=== PATIENT | female | born 1970 | race Caucasian/White ===

== ENCOUNTER 2017-10-26 08:41 | Outpatient (CLI) | payer OTHER | END 2017-10-26 08:42 | disposition home or self-care (01) | LOC: BICMAMMO 08:41 | PROVIDERS: ATTEND Family Medicine | DX: Z12.31 Encounter for screening mammogram for malignant neoplasm of breast (principal); Z13.820 Encounter for screening for osteoporosis; N63.20 Unspecified lump in the left breast, unspecified quadrant; M85.89 Other specified disorders of bone density and structure, multiple sites; Z90.710 Acquired absence of both cervix and uterus; Z82.62 Family history of osteoporosis | CPT/HCPCS: 77067; 77080 ==

== ENCOUNTER 2017-10-28 12:29 | Outpatient (CLI) | payer OTHER | END 2017-10-28 12:30 | disposition home or self-care (01) | LOC: BICMAMMO 12:29 | PROVIDERS: ATTEND Family Medicine | DX: N63.20 Unspecified lump in the left breast, unspecified quadrant (principal) | CPT/HCPCS: G0279 ==

== ENCOUNTER 2018-10-19 09:16 | Outpatient (CLI) | payer OTHER ==
--- NOTE | 2018-10-19 10:30 | MRI ---
MRI LEFT KNEE WITHOUT CONTRAST: INDICATION: Left knee pain for 3 weeks. FINDINGS: There is mild chondrosis involving the lateral patellar facet and median patellar ridge. The ACL, PCL, MCL and LCLC are intact. Extensor mechanism is intact. The medial and lateral menisci are intact. 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 The extensor mechanism is normal-appearing. There is mild diffuse thinning involving the femoral tibial compartments. No full-thickness articular cartilage defect is evident. IMPRESSION: 1. 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 No full-t hickness defect is grossly evident. 2. The ACL, PCL, MCL and LCLC are intact. 3. The menisci are intact. The lateral meniscus is partially discoid without evidence of discrete te ar. Transcribed Date/Time: 10/19/2018 10:46 AM
== END 2018-10-19 09:17 | disposition home or self-care (01) ==
LOC: TBSIIMAG 09:16
PROVIDERS: ATTEND Family Medicine
DX: M25.562 Pain in left knee (principal); M25.862 Other specified joint disorders, left knee

== ENCOUNTER 2018-11-16 12:53 | Outpatient (CLI) | payer OTHER ==
--- NOTE | 2018-11-16 14:33 | MMO ---
Bilateral MAMMO Bilat Screen DDI. CLINICAL HISTORY: Patient is 48 years old and is seen for screening. The patient has no family history of breast cancer. The patient has no personal history of cancer. VIEWS: The views performed were: bilateral craniocaudal and bilateral mediolateral oblique. FILMS COMPARED: The present examination has been compared to prior imaging studies performed at [facility] on 09/06/2015, 09/10/2015, 10/24/2016, 10/26/2017 and 10/28/2017. This study has been interpreted with the assistance of computer-aided detection. MAMMOGRAM FINDINGS: The breasts are almost entirely fat. There are no suspicious masses, suspicious calcifications, or new areas of architectural distortion. IMPRESSION: THERE IS NO MAMMOGRAPHIC EVIDENCE OF MALIGNANCY. A ROUTINE FOLLOW-UP MAMMOGRAM IN 1 YEAR IS RECOMMENDED. ACR BI-RADS Category 1 - Negative MAMMOGRAPHY NOTE: 1. A negative mammogram report should not delay a biopsy if a dominant of clinically suspicious mass is present. 2. Approximately 10% to 15% of breast cancers are not detected by mammography. 3. Adenosis and dense breasts may obscure an underlying neoplasm.
== END 2018-11-16 12:54 | disposition home or self-care (01) ==
LOC: BICMAMMO 12:53
PROVIDERS: ATTEND Family Medicine
DX: Z12.31 Encounter for screening mammogram for malignant neoplasm of breast (principal)
CPT/HCPCS: 77067

== ENCOUNTER 2019-08-08 13:08 | Emergency (ER) | payer OTHER ==
[2019-08-08 15:05] LABS: #Basophils 0.1 thou/uL (0.0-0.2); #Eosinphils 0.3 thou/uL (0.0-0.7); #Lymphocytes 3.8 thou/uL (1.20-3.40); #Monocytes 0.7 thou/uL (0.11-0.59); #Neutrophils 4.7 thou/uL (1.40-6.50); %Basophils 1.4 % (0.0-1.0); %Eosinophils 2.6 % (0.0-10.0); %Lymphocytes 39.3 % (21.0-51.0); %Monocytes 7.4 % (0.0-10.0); %Neutrophils 49.3 % (42.0-75.0); Hemoglobin 14.9 g/dL (12.0-16.0); Mean Corpuscular HGB CONC 33.2 g/dL (32.0-36.0); Mean Corpuscular Hemoglobin 30.3 pg (27.0-31.0); Mean Corpuscular Volume 91.2 fL (78.0-98.0); Mean Platelet Volume 8.2 fL (7.4-10.4); Platelet Count 274 thou/uL (130-400); RBC Distribution Width 12.4 % (11.5-14.5); Red Blood Cell (RBC) Count 4.91 mill/uL (4.20-5.40); White Blood Cell (WBC) Count 9.6 thou/uL (4.8-10.8)
[2019-08-08 15:31] LABS: ALT (SGPT) 23 U/L (8-55); AST (SGOT) 26 U/L (5-34); Albumin 5.1 g/dL (3.5-5.0); Alkaline Phosphatase 92 U/L (40-110); Anion Gap 12 mmol/L (10-20); BUN (Urea Nitrogen) 15 mg/dL (9.8-20.1); Bilirubin, Total 0.7 mg/dL (0.2-1.2); Calc. Creatinine Clearance 0 mL/min (70-130); Calcium 10.6 mg/dL (7.8-10.44); Carbon Dioxide 26 mmol/L (22-29); Chloride 105 mmol/L (98-107); Estimated GFR-MDRD 55; Globulin 3.9 g/dL (2.4-3.5); Glucose 77 mg/dL (70-105); Lipase 44 U/L (8-78); Potassium 4.1 mmol/L (3.5-5.1); Sodium 139 mmol/L (136-145)
== END 2019-08-08 17:12 | disposition left against medical advice (07) ==
LOC: ERS 13:08
DX: Z53.21 Procedure and treatment not carried out due to patient leaving prior to being seen by health care provider (principal)
CPT/HCPCS: 36415; 80053; 83690; 85025

== ENCOUNTER 2020-03-05 13:29 | Outpatient (CLI) | payer OTHER ==
--- NOTE | 2020-03-05 14:13 | MMO ---
Left Breast MAMMO Unilat Diag DDI LT+[facility]. CLINICAL HISTORY: Patient is 50 years old and is seen for additional evaluation requested from prior study. The patient has no family history of breast cancer. The patient has no personal history of cancer. VIEWS: The views performed were: left craniocaudal spot compression with tomosynthesis; left mediolateral oblique spot compression with tomosynthesis; and left mediolateral with tomosynthesis. FILMS COMPARED: The present examination has been compared to prior imaging studies performed at [facility] on 10/28/2017, 11/16/2018, 03/01/2020 and 03/05/2020. This study has been interpreted with the assistance of computer-aided detection. MAMMOGRAM FINDINGS: There are scattered fibroglandular densities. There is an oval mass measuring 4 millimeters with circumscribed margins seen in the inner region of the left breast. Sonography of this region demonstrates no concerning findings. IMPRESSION: MASS IN THE LEFT BREAST IS PROBABLY BENIGN. FOLLOW-UP IN 6 MONTHS IS RECOMMENDED. THE RESULTS OF THIS EXAM WERE SENT TO THE PATIENT. ACR BI-RADS Category 3 - Probably benign finding - short interval follow-up suggested. [facility] will notify the patient of the need for additional imaging services. MAMMOGRAPHY NOTE: 1. A negative mammogram report should not delay a biopsy if a dominant of clinically suspicious mass is present. 2. Approximately 10% to 15% of breast cancers are not detected by mammography. 3. Adenosis and dense breasts may obscure an underlying neoplasm. Reported by: ARTHUR COURTNEY MD Electonically Signed: [id number]
--- NOTE | 2020-03-05 14:23 | ULT ---
EXAM: US Breast Limited Lt PROVIDED CLINICAL HISTORY: Abnormal screening mammogram COMPARISON: Concurrently performed diagnostic mammogram FINDINGS: Limited sonographic interrogation was performed of the inner left breast. No sonographic abnormality is evident in the region of mammographic concern. IMPRESSION: No sonographic abnormality is evident. Six-month follow-up diagnostic left mammogram is recommended. BI-RADS 3 -- probably benign, 6-month follow-up
== END 2020-03-05 13:30 | disposition home or self-care (01) ==
LOC: BICMAMMO 13:29
PROVIDERS: ATTEND Family Medicine
DX: R92.2 Inconclusive mammogram (principal); N63.20 Unspecified lump in the left breast, unspecified quadrant
CPT/HCPCS: G0279

== ENCOUNTER 2020-08-16 09:08 | Outpatient (CLI) | payer OTHER ==
--- NOTE | 2020-08-16 09:52 | MMO ---
Left Breast MAMMO Unilat Diag [facility]DI LT+[facility]. CLINICAL HISTORY: Patient is 50 years old and is seen for diagnostic exam. The patient has no family history of breast cancer. The patient has no personal history of cancer. VIEWS: The views performed were: left craniocaudal with tomosynthesis; left mediolateral oblique with tomosynthesis; and left mediolateral with tomosynthesis. FILMS COMPARED: The present examination has been compared to prior imaging studies performed at [facility] on 11/16/2018, 03/01/2020 and 03/05/2020. This study has been interpreted with the assistance of computer-aided detection. MAMMOGRAM FINDINGS: There are scattered fibroglandular densities. The left lower inner nodular density is less prominent. IMPRESSION: FINDING IN THE LEFT BREAST IS PROBABLY BENIGN. FOLLOW-UP IN 6 MONTHS IS RECOMMENDED. THE RESULTS OF THIS EXAM WERE SENT TO THE PATIENT. ACR BI-RADS Category 3 - Probably benign finding - short interval follow-up suggested. [facility] will notify the patient of the need for additional imaging services. MAMMOGRAPHY NOTE: 1. A negative mammogram report should not delay a biopsy if a dominant of clinically suspicious mass is present. 2. Approximately 10% to 15% of breast cancers are not detected by mammography. 3. Adenosis and dense breasts may obscure an underlying neoplasm. Reported by: INDIA NASH MD Electonically Signed: [id number]
== END 2020-08-16 09:09 | disposition home or self-care (01) ==
LOC: BICMAMMO 09:08
PROVIDERS: ATTEND Family Medicine
DX: R92.8 Other abnormal and inconclusive findings on diagnostic imaging of breast (principal)
CPT/HCPCS: G0279

== ENCOUNTER 2021-02-14 13:33 | Outpatient (CLI) | payer MEDICAID | END 2021-02-14 13:34 | disposition home or self-care (01) | LOC: BICMAMMO 13:33 | PROVIDERS: ATTEND Family Medicine | DX: R92.8 Other abnormal and inconclusive findings on diagnostic imaging of breast (principal) | CPT/HCPCS: 77066; G0279 ==

== ENCOUNTER 2022-03-12 11:49 | Outpatient (CLI) | payer OTHER | END 2022-03-12 11:50 | disposition home or self-care (01) | LOC: BICMAMMO 11:49 | PROVIDERS: ATTEND Family Medicine | DX: Z12.31 Encounter for screening mammogram for malignant neoplasm of breast (principal) | CPT/HCPCS: 77067 ==

== ENCOUNTER 2022-10-15 12:12 | Outpatient (CLI) | payer OTHER | END 2022-10-15 12:13 | disposition home or self-care (01) | LOC: BICCT 12:12 | PROVIDERS: ATTEND Family Medicine | DX: Z12.2 Encounter for screening for malignant neoplasm of respiratory organs (principal); F17.210 Nicotine dependence, cigarettes, uncomplicated | CPT/HCPCS: 71271 ==

== ENCOUNTER 2022-10-15 13:00 | Outpatient (CLI) | payer OTHER | END 2022-10-15 13:01 | disposition home or self-care (01) | LOC: BICMAMMO 13:00 | PROVIDERS: ATTEND Family Medicine | DX: Z13.820 Encounter for screening for osteoporosis (principal); M85.89 Other specified disorders of bone density and structure, multiple sites; Z90.710 Acquired absence of both cervix and uterus | CPT/HCPCS: 77080 ==

== ENCOUNTER 2023-03-13 09:47 | Outpatient (CLI) | payer OTHER | END 2023-03-13 09:48 | disposition home or self-care (01) | LOC: BICMAMMO 09:47 | PROVIDERS: ATTEND Family Medicine | DX: R22.31 Localized swelling, mass and lump, right upper limb (principal); N63.10 Unspecified lump in the right breast, unspecified quadrant | CPT/HCPCS: 77066; G0279 ==